=== PATIENT | female | born 1945 | race Caucasian/White ===

== ENCOUNTER → 2017-01-27 | Outpatient (CLI) | payer MEDICARE ==
[~2017-01-27] MED LIST: AMIT50TA3 PO; ASPI-892 PO; CETI10TA20 PO; CYCL10TA9 PO; DICY10CA12 PO; GFN600TCR PO; GLIP5TAB13 PO; METF500T4 PO; MMT17NA NS; MTP100TCR PO; OMEG1CAP58 PO; OMEP20CA12 PO; POTA10CA16 PO; PROBIOTIC1 EACH PO; ROSU5TAB PO; SMV20T PO; SRTR100T PO; TRIA1TAB3 PO
== END ==
DX: M79.601 Pain in right arm (principal)

== ENCOUNTER → 2017-03-29 | Outpatient (CLI) | payer MEDICARE ==
--- NOTE | 2017-03-29 18:06 | Diagnostic Imaging Report ---
INDICATION: Screening mammogram. COMPARISON: 10/26/13 Digital screening mammography was obtained with CAD and three-dimensional tomosynthesis. The current study was also evaluated with a Computer Aided Detection (CAD) system. FINDINGS: Scattered fibroglandular densities are present. There is no mass or suspicious calcification. IMPRESSION: Stable screening mammogram. No malignancy. ACR BI-RADS Category 1: Negative. Result letter will be mailed to the patient. Note: At least 10% of breast cancer is not imaged by mammography. Dictated on workstation # [id number]
== END ==
LOC: RAD 11:22
PROVIDERS: ATTEND Family Medicine
DX: Z12.31 Encounter for screening mammogram for malignant neoplasm of breast (principal)
CPT/HCPCS: 77067

== ENCOUNTER → 2017-06-01 | Outpatient (CLI) | payer MEDICARE, OTHER | LOC: CARD 11:09 | PROVIDERS: ATTEND Internal Medicine Cardiovascular Disease | DX: I65.23 Occlusion and stenosis of bilateral carotid arteries (principal); I10 Essential (primary) hypertension; E78.2 Mixed hyperlipidemia; I47.1 Supraventricular tachycardia | CPT/HCPCS: 93306 ==

== ENCOUNTER 2017-11-04 11:29 | Outpatient (RCR) | payer MEDICARE, OTHER | END 2017-11-08 | disposition home or self-care (01) | PROVIDERS: ATTEND Nurse Practitioner Family | DX: Z47.89 Encounter for other orthopedic aftercare (principal); S46.011D Strain of muscle(s) and tendon(s) of the rotator cuff of right shoulder, subsequent encounter; W19.XXXD Unspecified fall, subsequent encounter ==

== ENCOUNTER 2017-11-17 10:00 | Outpatient (RCR) | payer MEDICARE ==
[~2017-11-17 10:00] MED LIST changes: -METF500T4 PO; +METF500T5 PO
== END 2018-01-07 10:43 | disposition home or self-care (01) ==
PROVIDERS: ATTEND Nurse Practitioner Family
DX: Z47.89 Encounter for other orthopedic aftercare (principal); S46.011D Strain of muscle(s) and tendon(s) of the rotator cuff of right shoulder, subsequent encounter; W19.XXXD Unspecified fall, subsequent encounter

== ENCOUNTER 2018-05-03 13:47 | Outpatient (CLI) | payer MEDICARE ==
[~2018-05-03] VITALS: Ht 160 cm; Wt 80.7 kg
[~2018-05-03 13:47] MED LIST changes: +METF-397 PO; -METF500T5 PO
[2018-05-03] MEDS ORDERED: ASPI-983 PO (13:55)
[2018-05-03] MEDS ORDERED: SERT100T8 PO (13:55)
[2018-05-03] MEDS ORDERED: METO-395 PO (13:55)
[2018-05-03] MEDS ORDERED: DICY10CA12 PO (13:55)
[2018-05-03] MEDS ORDERED: LISI10TA2 PO (13:55)
[2018-05-03] MEDS ORDERED: AMIT50TA3 PO (13:55)
[2018-05-03] MEDS ORDERED: OMEP20CA12 PO (13:55)
[2018-05-03] MEDS ORDERED: CYCL10TA9 PO (13:55)
[2018-05-03] MEDS ORDERED: GUAI600T43 PO (13:55)
[2018-05-03] MEDS ORDERED: MMT17NA NS (13:55)
== END 2018-05-03 13:58 | disposition home or self-care (01) ==
LOC: PREOP 13:47
PROVIDERS: ATTEND Specialist
DX: Z01.818 Encounter for other preprocedural examination (principal)

== ENCOUNTER 2018-05-04 08:19 | Day surgery (SDC) | payer MEDICARE ==
[~2018-05-04] VITALS: Ht 160 cm; Wt 80.7 kg
[~2018-05-04 08:19] MED LIST changes: +ASPI-983 PO; +GUAI600T43 PO; +LISI10TA2 PO; +METO-395 PO; +SERT100T8 PO
--- OUTSIDE RECORDS SUMMARY | 2018-05-04 08:22 | XMS REPORT | Continuity of Care Document ---
Author Author [facility] Organization [facility] Address Unknown Phone Unavailable Allergies Active Description Code Type Severity Reaction Onset Reported/Identified Relationship to Patient Clinical Status Yes No Known Drug Allergies [id number] Drug Allergy Unknown N/A 02/19/2010 Medications There is no data. Problems Date Dx Coded Attending Type Code Diagnosis Diagnosed By 07/08/1042 ASHLEY HESS APRN Ot S46.011D STRAIN OF MUSC/TEND THE ROTATOR CUFF OF 07/08/1042 ASHLEY HESS APRN Ot W19.XXXD UNSPECIFIED FALL, SUBSEQUENT ENCOUNTER 07/08/1042 ASHLEY HESS APRN Ot Z47.89 ENCOUNTER FOR OTHER ORTHOPEDIC AFTERCARE 11/13/2011 Ot 564.1 IRRITABLE BOWEL SYNDROME 11/13/2011 Ot 789.00 ABDOMINAL PAIN, UNSPECIFIED SITE 04/26/2012 Ot 250.00 DIAB TINA WO COMPL, TYPE II OR UNSPEC TY 04/26/2012 Ot 272.4 HYPERLIPIDEMIA NEC/NOS 04/26/2012 Ot 300.00 ANXIETY STATE NOS 04/26/2012 Ot 311 DEPRESSIVE DISORDER NEC 04/26/2012 Ot 401.9 HYPERTENSION NOS 04/26/2012 Ot 427.89 CARDIAC DYSRHYTHMIAS NEC 04/26/2012 Ot 530.81 ESOPHAGEAL REFLUX 04/26/2012 Ot 564.1 IRRITABLE BOWEL SYNDROME 04/26/2012 Ot 786.59 CHEST PAIN NEC 04/26/2012 Ot 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 08/13/2015 KATIE VIEYRA DO Ot K57.90 DVRTCLOS OF INTEST, PART UNSP, W/O PERF 08/13/2015 KATIE VIEYRA DO Ot Z12.11 ENCOUNTER FOR SCREENING FOR MALIGNANT NE 01/27/2017 Ot V76.12 OTH SCREEN MAMMO-MALIGN NEOPLASM OF VIANCA 01/27/2017 REVA RM, MAVERICK R Ot V76.12 OTH SCREEN MAMMO-MALIGN NEOPLASM OF VIANCA 01/27/2017 MAVERICK ARDON MD R Ot V82.81 SCREENING FOR OSTEOPOROSIS 01/27/2017 LAINEY MELVIN MD Ot 272.4 HYPERLIPIDEMIA NEC/NOS 01/27/2017 LAINEY MELVIN MD Ot 397.0 TRICUSPID VALVE DISEASE 01/27/2017 LAINEY MELVIN MD Ot 401.9 HYPERTENSION NOS 01/27/2017 LAINEY MELVIN MD Ot 424.0 MITRAL VALVE DISORDER 01/27/2017 LAINEY MELVIN MD Ot 433.10 CAROTID ARTERY OCCLUSION W O CEREBRAL IN 01/27/2017 LAINEY MELVIN MD Ot 530.81 ESOPHAGEAL REFLUX 01/27/2017 KATIE VIEYRA DO Ot Z01.818 ENCOUNTER FOR OTHER PREPROCEDURAL EXAMIN 02/05/2017 GEOVANNI JOHN Ot M79.601 PAIN IN RIGHT ARM 03/24/2017 MAVERICK ARDON MD R Ot Z12.31 ENCNTR SCREEN MAMMOGRAM FOR MALIGNANT NE 03/24/2017 Ot V76.12 OTH SCREEN MAMMO-MALIGN NEOPLASM OF VIANCA 03/24/2017 MAVERICK ARDON MD R Ot V76.12 OTH SCREEN MAMMO-MALIGN NEOPLASM OF VIANCA 03/24/2017 MAVERICK ARDON MD R Ot V82.81 SCREENING FOR OSTEOPOROSIS 03/24/2017 LAINEY MELVIN MD Ot 272.4 HYPERLIPIDEMIA NEC/NOS 03/24/2017 LAINEY MELVIN MD Ot 397.0 TRICUSPID VALVE DISEASE 03/24/2017 LAINEY MELVIN MD Ot 401.9 HYPERTENSION NOS 03/24/2017 LAINEY MELVIN MD Ot 424.0 MITRAL VALVE DISORDER 03/24/2017 LAINEY MELVIN MD Ot 433.10 CAROTID ARTERY OCCLUSION W O CEREBRAL IN 03/24/2017 LAINEY MELVIN MD Ot 530.81 ESOPHAGEAL REFLUX 03/24/2017 KATIE VIEYRA DO Ot Z01.818 ENCOUNTER FOR OTHER PREPROCEDURAL EXAMIN 03/24/2017 GEOVANNI JOHN Ot M79.601 PAIN IN RIGHT ARM 03/24/2017 MAVERICK ARDON MD R Ot Z12.31 ENCNTR SCREEN MAMMOGRAM FOR MALIGNANT NE 03/29/2017 Ot V76.12 OTH SCREEN MAMMO-MALIGN NEOPLASM OF VIANCA 03/29/2017 MAVERICK ARDON MD Ot V76.12 OTH SCREEN MAMMO-MALIGN NEOPLASM OF VIANCA 03/29/2017 MAVERICK ARDON MD Ot V82.81 SCREENING FOR OSTEOPOROSIS 03/29/2017 LAINEY MELVIN MD Ot 272.4 HYPERLIPIDEMIA NEC/NOS 03/29/2017 LAINEY MELVIN MD Ot 397.0 TRICUSPID VALVE DISEASE 03/29/2017 LAINEY MELVIN MD Ot 401.9 HYPERTENSION NOS 03/29/2017 LAINEY MELVIN MD Ot 424.0 MITRAL VALVE DISORDER 03/29/2017 LAINEY MELVIN MD Ot 433.10 CAROTID ARTERY OCCLUSION W O CEREBRAL IN 03/29/2017 LAINEY MELVIN MD Ot 530.81 ESOPHAGEAL REFLUX 03/29/2017 KATIE VIEYRA DO Ot Z01.818 ENCOUNTER FOR OTHER PREPROCEDURAL EXAMIN 03/29/2017 GEOVANNI JOHN [facility] Ot M79.601 PAIN IN RIGHT ARM 03/29/2017 MAVERICK ARDON MD R Ot Z12.31 ENCNTR SCREEN MAMMOGRAM FOR MALIGNANT NE 03/30/2017 MAVERICK ARDON MD Ot Z12.31 ENCNTR SCREEN MAMMOGRAM FOR MALIGNANT NE 04/04/2017 MAVERICK ARDON MD Ot Z12.31 ENCNTR SCREEN MAMMOGRAM FOR MALIGNANT NE 04/22/2017 MAVERICK ARDON MD Ot Z12.31 ENCNTR SCREEN MAMMOGRAM FOR MALIGNANT NE 04/22/2017 MAVERICK ARDON MD Ot Z12.31 ENCNTR SCREEN MAMMOGRAM FOR MALIGNANT NE 06/23/2017 LAINEY MELVIN MD Ot E78.2 MIXED HYPERLIPIDEMIA 06/23/2017 LAINEY MELVIN MD Ot I10 ESSENTIAL (PRIMARY) HYPERTENSION 06/23/2017 LAINEY MELVIN MD Ot I47.1 SUPRAVENTRICULAR TACHYCARDIA 06/23/2017 LAINEY MELVIN MD Ot I65.23 OCCLUSION AND STENOSIS OF BILATERAL BRADEN 08/11/2017 ASHLEY HESS APRN Ot S46.011D STRAIN OF MUSC/TEND THE ROTATOR CUFF OF 08/11/2017 ASHLEY HESS APRN Ot W19.XXXD UNSPECIFIED FALL, SUBSEQUENT ENCOUNTER 08/11/2017 DESHAWN, ASHLEY E [employer] Ot Z47.89 ENCOUNTER FOR OTHER ORTHOPEDIC AFTERCARE 08/26/2017 DESHAWN, ASHLEY E [employer] Ot S46.011D STRAIN OF MUSC/TEND THE ROTATOR CUFF OF 08/26/2017 DESHAWN, ASHLEY E [employer] Ot W19.XXXD UNSPECIFIED FALL, SUBSEQUENT ENCOUNTER 08/26/2017 DESHAWN, ASHLEY E [employer] Ot Z47.89 ENCOUNTER FOR OTHER ORTHOPEDIC AFTERCARE 10/05/2017 DESHAWN, ASHLEY E [employer] Ot S46.011D STRAIN OF MUSC/TEND THE ROTATOR CUFF OF 10/05/2017 DESHAWN, ASHLEY E [employer] Ot W19.XXXD UNSPECIFIED FALL, SUBSEQUENT ENCOUNTER 10/05/2017 DESHAWN, ASHLEY E [employer] Ot Z47.89 ENCOUNTER FOR OTHER ORTHOPEDIC AFTERCARE 10/05/2017 DESHAWN, ASHLEY E [employer] Ot S46.011D STRAIN OF MUSC/TEND THE ROTATOR CUFF OF 10/05/2017 DESHAWN, ASHLEY E [employer] Ot W19.XXXD UNSPECIFIED FALL, SUBSEQUENT ENCOUNTER 10/05/2017 DESHAWN, ASHLEY E [employer] Ot Z47.89 ENCOUNTER FOR OTHER ORTHOPEDIC AFTERCARE 10/14/2017 DESHAWN, ASHLEY E [employer] Ot S46.011D STRAIN OF MUSC/TEND THE ROTATOR CUFF OF 10/14/2017 DESHAWN, ASHLEY E [employer] Ot W19.XXXD UNSPECIFIED FALL, SUBSEQUENT ENCOUNTER 10/14/2017 DESHAWN, ASHLEY E [employer] K[employer] Ot Z47.89 ENCOUNTER FOR OTHER ORTHOPEDIC AFTERCARE 10/14/2017 DESHAWN, ASHLEY E [employer] K[employer] Ot S46.011D STRAIN OF MUSC/TEND THE ROTATOR CUFF OF 10/14/2017 DESHAWN, ASHLEY E [employer] Ot W19.XXXD UNSPECIFIED FALL, SUBSEQUENT ENCOUNTER 10/14/2017 DESHAWN, ASHLEY E [employer] Ot Z47.89 ENCOUNTER FOR OTHER ORTHOPEDIC AFTERCARE 10/14/2017 DESHAWN, ASHLEY E [employer] Ot S46.011D STRAIN OF MUSC/TEND THE ROTATOR CUFF OF 10/14/2017 DESHAWN, ASHLEY E [employer] K[employer]PER Ot W19.XXXD UNSPECIFIED FALL, SUBSEQUENT ENCOUNTER 10/14/2017 DESHAWN, ASHLEY E [employer] Ot Z47.89 ENCOUNTER FOR OTHER ORTHOPEDIC AFTERCARE 10/27/2017 DESHAWN, ASHLEY E [employer] Ot S46.011D STRAIN OF MUSC/TEND THE ROTATOR CUFF OF 10/27/2017 DESHAWN, ASHLEY E [employer] Ot W19.XXXD UNSPECIFIED FALL, SUBSEQUENT ENCOUNTER 10/27/2017 DESHAWN, ASHLEY E [employer] K[employer] Ot Z47.89 ENCOUNTER FOR OTHER ORTHOPEDIC AFTERCARE 11/08/2017 DESHAWN, ASHLEY E [employer] K[employer] Ot S46.011D STRAIN OF MUSC/TEND THE ROTATOR CUFF OF 11/08/2017 DESHAWN, ASHLEY E [employer] K[employer]PER Ot W19.XXXD UNSPECIFIED FALL, SUBSEQUENT ENCOUNTER 11/08/2017 DESHAWN, ASHLEY E [employer] K[employer] Ot Z47.89 ENCOUNTER FOR OTHER ORTHOPEDIC AFTERCARE 11/09/2017 DESHAWN, ASHLEY E [employer] K[employer]PER Ot S46.011D STRAIN OF MUSC/TEND THE ROTATOR CUFF OF 11/09/2017 DESHAWN, ASHLEY E [employer] K[employer]PER Ot W19.XXXD UNSPECIFIED FALL, SUBSEQUENT ENCOUNTER 11/09/2017 DESHAWN, ASHLEY E [employer] K[employer]PER Ot Z47.89 ENCOUNTER FOR OTHER ORTHOPEDIC AFTERCARE 11/11/2017 DESHAWN, AHSLEY E [employer] KEEPER Ot S46.011D STRAIN OF MUSC/TEND THE ROTATOR CUFF OF 11/11/2017 DESHAWN, ASHLEY E [employer] K[employer]PER Ot W19.XXXD UNSPECIFIED FALL, SUBSEQUENT ENCOUNTER 11/11/2017 DESHAWN, ASHLEY E [employer] K[employer]PER Ot Z47.89 ENCOUNTER FOR OTHER ORTHOPEDIC AFTERCARE 11/12/2017 DESHAWN, ASHLEY E [employer] KEEPER Ot S46.011D STRAIN OF MUSC/TEND THE ROTATOR CUFF OF 11/12/2017 DESHAWN, ASHLEY E [employer] KEEPER Ot W19.XXXD UNSPECIFIED FALL, SUBSEQUENT ENCOUNTER 11/12/2017 DESHAWN, ASHLEY E [employer] K[employer]PER Ot Z47.89 ENCOUNTER FOR OTHER ORTHOPEDIC AFTERCARE 12/15/2017 DESHAWN, ASHLEY E [employer] K[employer]PER Ot S46.011D STRAIN OF MUSC/TEND THE ROTATOR CUFF OF 12/15/2017 DESHAWN, ASHLEY E [employer] KEEPER Ot W19.XXXD UNSPECIFIED FALL, SUBSEQUENT ENCOUNTER 12/15/2017 DESHAWN, ASHLEY E [employer] KEEPER Ot Z47.89 ENCOUNTER FOR OTHER ORTHOPEDIC AFTERCARE 12/24/2017 DESHAWN, ASHLEY E [employer] KEEPER Ot S46.011D STRAIN OF MUSC/TEND THE ROTATOR CUFF OF 12/24/2017 DESHAWN, ASHLEY E [employer] KEEPER Ot W19.XXXD UNSPECIFIED FALL, SUBSEQUENT ENCOUNTER 12/24/2017 ASHLEY HESS [employer] KEEPER Ot Z47.89 ENCOUNTER FOR OTHER ORTHOPEDIC AFTERCARE 01/07/2018 ASHLEY HESS [employer] Ot S46.011D STRAIN OF MUSC/TEND THE ROTATOR CUFF OF 01/07/2018 ASHLEY HESS [employer] Ot W19.XXXD UNSPECIFIED FALL, SUBSEQUENT ENCOUNTER 01/07/2018 ASHLEY HESS APRN Ot Z47.89 ENCOUNTER FOR OTHER ORTHOPEDIC AFTERCARE 04/07/2018 MAVERICK ARDON MD Ot V76.12 OTH SCREEN MAMMO-MALIGN NEOPLASM OF VIANCA 04/07/2018 MAVERICK ARDON MD Ot V82.81 SCREENING FOR OSTEOPOROSIS 04/07/2018 LAINEY MELVIN MD Ot 272.4 HYPERLIPIDEMIA NEC/NOS 04/07/2018 LAINEY MELVIN MD Ot 397.0 TRICUSPID VALVE DISEASE 04/07/2018 LAINEY MELVIN MD Ot 401.9 HYPERTENSION NOS 04/07/2018 LAINEY MELVIN MD Ot 424.0 MITRAL VALVE DISORDER 04/07/2018 LAINEY MELVIN MD Ot 433.10 CAROTID ARTERY OCCLUSION W O CEREBRAL IN 04/07/2018 LAINEY MELVIN MD Ot 530.81 ESOPHAGEAL REFLUX 04/07/2018 KATIE VIEYRA DO Ot Z01.818 ENCOUNTER FOR OTHER PREPROCEDURAL EXAMIN 04/07/2018 GEOVANNI JOHNP Ot M79.601 PAIN IN RIGHT ARM 04/07/2018 MAVERICK ARDON MD Ot Z12.31 ENCNTR SCREEN MAMMOGRAM FOR MALIGNANT NE 04/07/2018 LAINEY MELVIN MD Ot E78.2 MIXED HYPERLIPIDEMIA 04/07/2018 LAINEY MELVIN MD Ot I10 ESSENTIAL (PRIMARY) HYPERTENSION 04/07/2018 LAINEY MELVIN MD Ot I47.1 SUPRAVENTRICULAR TACHYCARDIA 04/07/2018 LAINEY MELVIN MD Ot I65.23 OCCLUSION AND STENOSIS OF BILATERAL BRADEN 04/07/2018 LAINEY MELVIN MD Ot E78.2 MIXED HYPERLIPIDEMIA 04/07/2018 LAINEY MELVNI MD Ot I10 ESSENTIAL (PRIMARY) HYPERTENSION 04/07/2018 LAINEY MELVIN MD Ot I47.1 SUPRAVENTRICULAR TACHYCARDIA 04/07/2018 LAINEY MELVIN MD Ot I65.23 OCCLUSION AND STENOSIS OF BILATERAL BRADEN 04/07/2018 LAINEY MELVIN MD Ot E78.2 MIXED HYPERLIPIDEMIA 04/07/2018 LAINEY MELVIN MD Ot I10 ESSENTIAL (PRIMARY) HYPERTENSION 04/07/2018 LAINEY MELVIN MD Ot I47.1 SUPRAVENTRICULAR TACHYCARDIA 04/07/2018 LAINEY MEVLIN MD Ot I65.23 OCCLUSION AND STENOSIS OF BILATERAL BRADEN 04/08/2018 LAINEY MELVIN MD Ot E78.2 MIXED HYPERLIPIDEMIA 04/08/2018 LAINEY MELVIN MD Ot I10 ESSENTIAL (PRIMARY) HYPERTENSION 04/08/2018 LAINEY MELVIN MD Ot I47.1 SUPRAVENTRICULAR TACHYCARDIA 04/08/2018 LAINEY MELVIN MD, Ot I65.23 OCCLUSION AND STENOSIS OF BILATERAL BRADEN Procedures There is no data. Results There is no data. Encounters ACCT No. Visit Date/Time Discharge Status Pt. Type Provider Facility Loc./Unit Complaint [id number] 11/17/2017 10:00:00 01/07/2018 10:43:00 DIS Outpatient ASHLEY HESS APRN [facility] REHAB S/P MASSIVE RCR R SHOULDER [id number] 11/04/2017 11:29:00 11/08/2017 00:01:00 DIS Outpatient ASHLEY HESS APRN [facility] REHAB S/P MASSIVE RCR R SHOULDER [id number] 06/01/2017 11:09:00 06/01/2017 23:59:59 CLS Outpatient LAINEY MELVIN MD [facility] CARD HTN [id number] 03/29/2017 11:22:00 03/29/2017 23:59:59 CLS Outpatient MAVERICK ARDON MD [facility] RAD SCREENING [id number] 01/27/2017 14:43:00 01/27/2017 23:59:59 CLS Outpatient GEOVANNI JOHN [facility] RAD M79.601 [id number] 08/13/2015 08:11:00 08/13/2015 10:45:00 DIS Outpatient KATIE VIEYRA DO [facility] SDC SCREENING [id number] 08/08/2015 05:39:00 08/08/2015 23:59:59 CLS Outpatient KATIE VIEYRA DO [facility] PREOP SCREENING [id number] 04/25/2014 13:08:00 04/25/2014 23:59:59 CLS Outpatient NGOZI RM, LAINEY Gifford [facility] CARD CAROTID ARTERY STENOSIS , HTN,HLP [id number] 10/26/2013 09:11:00 10/26/2013 23:59:59 CLS Outpatient MAVERICK ARDON MD [facility] RAD SCREENING [id number] 05/04/2018 10:15:00 PEN Preadmit MICH PICKETT MD [facility] YAG [id number] 05/02/2018 05:41:00 ACT Outpatient MICH PICKETT MD [facility] PREOP YAG [id number] 04/25/2012 00:10:00 Document Registration [id number] 12/30/2011 13:26:00 Document Registration [id number] 11/13/2011 09:05:00 Document Registration
[2018-05-04 08:35] VITALS: BP 179/89
[2018-05-04] MEDS: TROPICAMIDE 1% OPH SOLN (MYDRIACYL) 15 ML BTL OU PRN ×3 (08:49→08:55)
[2018-05-04] MEDS: TETRACAINE 0.5% OPHTH SOLN 4 ML BTL (SINGLE DOSE ONLY) OU PRN ×3 (08:49→08:55)
[2018-05-04] MEDS: PHENYLEPHRINE 10% OPHTH (NEO-SYN) 5 ML BTL OU PRN ×3 (08:50→08:55)
--- NOTE | 2018-05-04 09:15 | Ophthalmologist Pre-Op Note ---
Pre-Operative Progress Note H&P Reviewed The H&P was reviewed, patient examined and no changes noted. Date H&P Reviewed: May 04, 2018 Time H&P Reviewed: 09:06 Pre-Op Dx Secondary Cataract, Right Eye MICH PICKETT MD May 04, 2018 09:15
--- NOTE | 2018-05-04 09:15 | Ophthalmology Operative Report ---
YAG Capsulotomy PREOPERATIVE DIAGNOSIS: Secondary Cataract Right Eye POSTOPERATIVE DIAGNOSIS: Secondary Cataract Right Eye PROCEDURE: YAG Capsulotomy, right eye SURGEON: Raj Pickett ANESTHESIA: Topical anesthesia COMPLICATIONS: None ESTIMATED BLOOD LOSS: Minimal DESCRIPTION OF PROCEDURE: After proper informed consent was obtained, the patient's, a 72 female, right eye received one drop of Tropicamide and one drop of Tetracaine. The patient was then placed at the YAG laser and using a power of [ 3.8] millijoules and [ 21] bursts were used to fashion a central capsulotomy. The patient tolerated the procedure well without complications and the patient's pressure was [ 11] shortly after the laser. RAJ PICKETT MD May 04, 2018 09:15
== END 2018-05-04 09:15 | disposition home or self-care (01) ==
LOC: SDC 08:19
PROVIDERS: ATTEND Specialist
DX: H26.40 Unspecified secondary cataract (principal); E11.36 Type 2 diabetes mellitus with diabetic cataract; F41.9 Anxiety disorder, unspecified; E78.00 Pure hypercholesterolemia, unspecified; M19.91 Primary osteoarthritis, unspecified site

== ENCOUNTER → 2019-06-28 | Outpatient (CLI) | payer MEDICARE, OTHER ==
[~2019-06-28] MED LIST changes: +OMEP20CA13 PO
== END ==
LOC: CARD 07:48
PROVIDERS: ATTEND Physician Assistant
DX: I65.29 Occlusion and stenosis of unspecified carotid artery (principal); K21.9 Gastro-esophageal reflux disease without esophagitis; I10 Essential (primary) hypertension; E78.5 Hyperlipidemia, unspecified
CPT/HCPCS: 93351

== ENCOUNTER → 2020-11-22 | Outpatient (CLI) | payer MEDICARE ==
[~2020-11-22] MED LIST changes: +ASPI-1238 PO; -ASPI-983 PO; -CETI10TA20 PO; +CETI10TA49 PO; -LISI10TA2 PO; +LISI10TA25 PO; -METO-395 PO; -OMEP20CA13 PO; +OMEP20CA18 PO; +SERT-414 PO; -SERT100T8 PO
--- NOTE | 2020-11-22 13:59 | Diagnostic Imaging Report ---
INDICATION: COUGH. TECHNIQUE: Two view chest 1:55 PM CORRELATION STUDY: 04/25/2012 FINDINGS: The heart size, mediastinal configuration and pulmonary vasculature are within normal limits. Elevated right diaphragm, stable. No consolidating infiltrate. Mild S-type curvature of the visualized spine. IMPRESSION: 1. Negative for acute abnormality of the chest. Dictated by: Dictated on workstation # [id number]
== END ==
LOC: RAD 13:17
PROVIDERS: ATTEND Family Medicine
DX: R05 Cough (principal)
CPT/HCPCS: 71046

== ENCOUNTER → 2020-12-27 | Outpatient (CLI) | payer MEDICARE | LOC: LABNPT 06:48 | PROVIDERS: ATTEND Podiatrist | DX: Z01.812 Encounter for preprocedural laboratory examination (principal); Z20.822 Contact with and (suspected) exposure to COVID-19 | CPT/HCPCS: 87635 ==

== ENCOUNTER → 2021-07-01 | Outpatient (CLI) | payer MEDICARE ==
[~2021-07-01] MED LIST changes: +CYCL10TA25 PO
== END ==
LOC: CARD 09:01
PROVIDERS: ATTEND Internal Medicine Cardiovascular Disease
DX: I10 Essential (primary) hypertension (principal); I25.10 Atherosclerotic heart disease of native coronary artery without angina pectoris
CPT/HCPCS: 93306

== ENCOUNTER → 2021-11-07 | Outpatient (CLI) | payer MEDICARE ==
[~2021-11-07] MED LIST changes: +MOME17SP4 NS
--- NOTE | 2021-11-07 09:08 | Diagnostic Imaging Report ---
PROCEDURE: US Gallbladder. TECHNIQUE: Multiple real-time grayscale images were obtained over the right upper quadrant in various projections. INDICATION: Right upper quadrant pain. FINDINGS: There is mild increased echogenicity of the liver consistent with some fatty change. Liver measures 12 cm. Bile ducts are not dilated. Common duct measures 3 mm. Gallbladder appears normal with no gallstones or wall thickening. No pericholecystic fluid. The aorta measures 1.5 cm. IVC and portal vein appear normal with Doppler sampling. Right kidney measures 9 x 4.2 x 4 cm and appears normal. There is no ascites. Negative Sexton sign. IMPRESSION: Mild fatty changes of the liver, otherwise normal overall exam. Dictated by: Dictated on workstation # [id number]
== END ==
LOC: RAD 07:33
PROVIDERS: ATTEND Family Medicine
DX: K76.0 Fatty (change of) liver, not elsewhere classified (principal); R19.7 Diarrhea, unspecified
CPT/HCPCS: 76705

== ENCOUNTER 2022-09-01 08:27 | Emergency (ER) | payer MEDICARE ==
[~2022-09-01] VITALS: Ht 160 cm; Wt 72.6 kg
--- NOTE | 2022-09-01 09:29 | ED General ---
General Chief Complaint: Cough/Cold/Flu Symptoms Stated Complaint: COUGH | CHEST CONGESTION Nursing Triage Note: PT AMB TO [facility] 8 WITH COMPLAINT OF COUGH, CONGESTION. STATES INITALLY BEGAN TO GET SICK ON July. STATES SHE IMPROVED BRIEFLY AND THEN WORSENED. DID TEST NEGATIVE FOR FLU AND COVID IN THE BEGINNING. Source of Information: Patient Exam Limitations: No Limitations History of Present Illness Date Seen by Provider: Sep 01, 2022 Time Seen by Provider: 08:37 Initial Comments Here with report of cough and congestion that has been going on for the last 3 weeks but got better and has worsened over the last few days. She is vaccinated for COVID and influenza. She is concerned about RSV. She denies nausea or vomiting. Her main concern after 3 weeks is pneumonia. Denies current fevers. She has been taking qehv-axf-lqlguwr medicine. Timing/Duration: Getting Worse, Intermittent, Other (3 weeks) Severity: Moderate Associated Systoms: No Chest Pain; Cough, Fever/Chills; No Nausea/Vomiting; S hortness of Air Allergies and Home Medications Allergies Coded Allergies: No Known Drug Allergies (Unverified , 02/19/10) Patient Home Medication List Home Medication List Reviewed: Yes Amitriptyline HCl (Amitriptyline HCl) 50 Mg Tablet, 50 MG PO HS, (Reported) Entered as Reported by: MALCOLM LOVE on 05/03/18 1355 Aspirin (Aspirin EC) 81 Mg Tablet.dr, 81 MG PO DAILY, (Reported) Entered as Reported by: MALCOLM LOVE on 05/03/18 1355 Cetirizine HCl (Zyrtec) 10 Mg Tablet, 10 MG PO DAILY, (Reported) Entered as Reported by: TIFFANIE GILBERT on 08/08/15 1041 Cyclobenzaprine HCl (Cyclobenzaprine HCl) 10 Mg Tablet, 10 MG PO Q8H PRN for MUSCLE SPASMS, (Reported) Entered as Reported by: MALCOLM LOVE on 05/03/18 1355 Dicyclomine HCl (Dicyclomine HCl) 10 Mg Capsule, 10 MG PO BID, (Reported) Entered as Reported by: MALCOLM LOVE on 05/03/18 1355 Glipizide (Glipizide) 5 Mg Tablet, 5 MG PO DAILY, (Reported) Entered as Reported by: TIFFANIE GILBERT on 08/08/15 1041 Guaifenesin (Mucinex) 600 Mg Tab.er.12h, 600 MG PO Q12H PRN for CONGESTION, (Reported) Entered as Reported by: MALCOLM LOVE on 05/03/18 135 Lisinopril (Lisinopril) 10 Mg Tablet, 10 MG PO DAILY, (Reported) Entered as Reported by: MALCOLM LOVE on 05/03/18 135 Metformin HCl (Metformin HCl) 500 Mg Tablet, 500 MG PO DAILY, (Reported) Entered as Reported by: TIFFANIE GILBERT on 08/08/15 1041 Metoprolol Succinate (Metoprolol Succinate) 100 Mg Tab.er.24h, 100 MG PO DAILY, (Reported) Entered as Reported by: MALCOLM LOVE on 05/03/18 135 Mometasone Furoate (Nasonex) 17 Gm Naspr, 17 GM NS BID PRN for CONGESTION, (Reported) Entered as Reported by: MALCOLM LOVE on 05/03/18 135 [place]-3 Fatty Acids/Fish Oil ([place] 3 1,000 mg Softgel) 1 Each Capsule, 1,000 MG PO DAILY, (Reported) Entered as Reported by: TIFFANIE GILBERT on 08/08/15 104 Omeprazole (Omeprazole) 20 Mg Capsule.dr, 20 MG PO DAILY, (Reported) Entered as Reported by: MALCOLM LOVE on 05/03/18 135 Rosuvastatin Calcium (Crestor) 5 Mg Tablet, 5 MG PO DAILY, (Reported) Entered as Reported by: TIFFANIE GILBERT on 08/08/15 104 Sertraline HCl (Sertraline HCl) 100 Mg Tablet, 100 MG PO DAILY, (Reported) Entered as Reported by: MALCOLM LOVE on 05/03/18 135 Review of Systems Review of Systems Constitutional: see HPI; No chills, No fever EENTM: nose congestion, throat pain Respiratory: cough; No short of breath Gastrointestinal: No nausea, No vomiting Genitourinary: no symptoms reported Musculoskeletal: no symptoms reported Past Hixhtqw-Wdofrx-Xdipoa Hx Patient Social History Tobacco Use?: No Use of E-Cig and/or Vaping dev: No Substance use?: No Alcohol Use?: No Pt feels they are or have been: No Immunizations Up To Date Influenza Vaccine Up-to-Date: Yes; Up-to-Date First/Initial COVID19 Vaccinat: 2020 Second COVID19 Vaccination Raudel: 2020 Third COVID19 Vaccination Date: 2020 Past Medical History Surgeries: Yes Appendectomy, Orthopedic, Tonsillectomy Respiratory: No Cardiac: Yes High Cholesterol, Hypertension Reproductive Disorders: Yes Endocrine: Yes Diabetes, Non-Insulin dep Psychosocial: Yes Sleep Difficulties, Anxiety Family Medical History Reviewed Nursing Family Hx No Pertinent Family Hx Physical Exam Vital Signs Vital Signs - First Documented 09/01/22 08:35 Temp 37.1 Pulse 96 Resp 16 B/P (MAP) 200/115 (143) Pulse Ox 98 O2 Delivery Room Air Capillary Refill : Height, Weight, BMI Height: 5'3.00" Weight: 178lbs. 0.0oz. 80.455699ya; 28.00 BMI Method:Stated General Appearance: No Apparent Distress, WD/WN HEENT: PERRL/EOMI, Pharynx Normal Neck: Non Tender, Supple Respiratory: Normal Breath Sounds, No Accessory Muscle Use Cardiovascular: Regular Rate, Rhythm, No Murmur Gastrointestinal: Non Tender, Soft Back: Normal Inspection, No CVA Tenderness, No Vertebral Tenderness Extremity: Normal Range of Motion, Non Tender Neurologic/Psychiatric: Alert, Oriented x3 Skin: Normal Color, Warm/Dry Progress/Results/Core Measures Suspected Sepsis SIRS Temperature: Pulse: 96 Respiratory Rate: 16 Blood Pressure 200 /115 Mean: 143 Results/Orders Lab Results Laboratory Tests Test 09/01/22 08:44 Range/Units Influenza Type A (RT-PCR) Not Detected Not Detecte Influenza Type B (RT-PCR) Not Detected Not Detecte SARS-CoV-2 RNA (RT-PCR) Detected H Not Detecte My Orders Orders - JERSON COLON MD Influenza A And B By Pcr (09/01/22 08:50) Chest 1 View, Ap/Pa Only (09/01/22 08:50) Covid 19 Inhouse Test (09/01/22 08:50) Vital Signs/I&O 09/01/22 08:35 Temp 37.1 Pulse 96 Resp 16 B/P (MAP) 200/115 (143) Pulse Ox 98 O2 Delivery Room Air Capillary Refill : Blood Pressure Mean: 143 Progress Note : Progress Note Seen and evaluated. We will check chest x-ray as well as influenza and COVID testing. This may be viral on viral infection. This was discussed with the patient who agrees. Considered labs but we will hold on that at this point. Her chest x-ray shows significant pneumonia, we will consider. Monitor patient. Differential includes viral etiology including influenza and COVID-19, pneumonia, viral bronchitis. 0935: COVID screen is positive. Chest x-ray shows no acute findings on my interpretation. Pending radiology review. 0950: Radiology agrees with interpretation. I did discuss with the patient regarding COVID-19 infection that COVID therapeutics might be beneficial. Paxlovid is not appropriate given her other medications but she could benefit from mulnopiravir. Risk and benefits discussed with the patient and she agrees to taking this. This will be prescribed outpatient. I will send a copy of the chart to Dr. AGUILERA, patient's primary care physician. Discharged home with return precautions. Patient verbalized understanding instructions and agreement with plan. Diagnostic Imaging Diagonstic Imaging: Xray Plain Films/CT/US/NM/MRI: chest Comments [facility], [facility]. [place], [place] NAME: STEFANY GRAY [facility] REC#: [id number] PT STATUS: REG ER : 1945 PHYSICIAN: JERSON COLON MD ADMIT DATE: 09/01/22/ER Signed Date of Exam:09/01/22 CHEST 1 VIEW, AP/PA ONLY EXAMINATION: Chest, 1 view. HISTORY: Cough. Congestion. COMPARISON: 11/22/2020. FINDINGS: The lung volumes are normal. Bibasilar opacities are seen. No large pleural effusion or pneumothorax is seen. The cardiomediastinal silhouette is normal in size and contour. There is calcified aortic atherosclerotic plaque. No acute osseous abnormality is seen. IMPRESSION: Bibasilar opacities are most suggestive of atelectasis. Dictated by: Dictated on workstation # [id number] Dict: 09/01/22 0941 Trans: 09/01/22 0943 [id number] Interpreted by: AXVI KATZ DO Electronically signed by: XAVI KATZ DO 09/01/22 0943 Departure Impression Primary Impression: COVID-19 virus infection Disposition: HOME, SELF-CARE Condition: Stable Departure-Patient Inst. Decision time for Depature: 09:51 Referrals: ALEJO AGUILERA DO (PCP/Family) Primary Care Physician Patient Instructions: Molnupiravir FDA Fact Sheet, COVID-19 Overview Add. Discharge Instructions: All discharge instructions reviewed with patient and/or family. Voiced understa nding. You may take Tylenol/acetaminophen 1000 mg every 6-8 hours as needed for fever or pain. You may use uicz-zsz-xhpofrq Afrin nasal spray or the generic, 12-hour relief, 2 sprays to each nostril twice daily for 3 days only and then stop. Do not use more than 3 days. Drink plenty of fluids and get plenty rest. Follow- up with your doctor later this week or early next week for recheck and further evaluation as needed. Return for worse pain, fever, vomiting, weakness, breathing problems or other concerns as needed. Scripts Molnupiravir (Molnupiravir (Eua)) 200 Mg Capsule 800 MG PO BID for 5 Days, #40 CAP Prov: JERSON COLON MD 09/01/22 Copy Copies To 1: ALEJO AGUILERA TIMOTHY D MD Sep 01, 2022 09:29
--- NOTE | 2022-09-01 09:43 | Diagnostic Imaging Report ---
EXAMINATION: Chest, 1 view. HISTORY: Cough. Congestion. COMPARISON: 11/22/2020. FINDINGS: The lung volumes are normal. Bibasilar opacities are seen. No large pleural effusion or pneumothorax is seen. The cardiomediastinal silhouette is normal in size and contour. There is calcified aortic atherosclerotic plaque. No acute osseous abnormality is seen. IMPRESSION: Bibasilar opacities are most suggestive of atelectasis. Dictated by: Dictated on workstation # [id number]
[2022-09-01] MEDS ORDERED: MOLN200C PO ×2 (09:53→10:30)
[2022-09-01 10:37] VITALS: BP 162/91
== END 2022-09-01 10:37 | disposition home or self-care (01) ==
LOC: EDUNIT# 08:27 → ER 08:30
DX: U07.1 COVID-19 (principal); R05.9 Cough, unspecified; R09.81 Nasal congestion
CPT/HCPCS: 71045; 87636